=== PATIENT | female | born 1985 | race Caucasian/White ===

== ENCOUNTER 2019-12-27 11:25 | Emergency (ER) | payer BC ==
[2019-12-27] MEDS ORDERED: ACETAMINOPHEN TAB 500 MG TAB PO STA (12:08)
--- NOTE | 2019-12-27 12:17 | ED ---
Fever HPI - General Chief Complaint: Fever Stated Complaint: fever/chills Time Seen by Provider: 12/27/19 11:42 Source: patient, RN notes reviewed Mode of arrival: ambulatory Limitations: no limitations - History of Present Illness Initial Comments: This is a 34-year-old female presents emergency Department with chief complaint of fever, chills, shortness of breath. Patient states that symptoms at certain last 24 hours and have progressively worsened. She states that her daughter is sick with presumptive pneumonia diagnosed by PCP on video call. Patient states that she does have history of asthma has been using her inhaler. She states she had shaking chills last night that she could not control she states that she's been taken Tylenol but has not had any recent doses last 4 hours. Patient denies any specific chest pain but states that she has diffuse achiness, body aches. Patient denies any GI symptoms include nausea, vomiting, diarrhea constipation. - Related Data Home Medications Medication Instructions Recorded Confirmed Albuterol Inhaler (Bulk) [Ventolin 1 - 2 puff INHALATION Q6HR PRN 12/06/15 03/04/16 Hfa Inhaler] Acetaminophen Tab [Tylenol Tab] 650 mg PO Q4H PRN 08/26/16 09/03/16 valACYclovir HCL [Valtrex] 1 gram PO DAILY 12/27/19 12/27/19 Previous Rx's Medication Instructions Recorded Azithromycin [Zithromax Z-pack] 0 mg PO DIRECTED #1 pack 12/27/19 Allergies Allergy/AdvReac Type Severity Reaction Status Date / Time cephalexin [From Keflex] Allergy Rash/Hives Verified 12/27/19 13:57 cephalexin monohydrate Allergy Unknown Verified 12/27/19 13:57 [From Keflex] Review of Systems ROS Statement: Those systems with pertinent positive or pertinent negative responses have been documented in the HPI. ROS Other: All systems not noted in ROS Statement are negative. Past Medical History Past Medical History: Asthma Additional Past Medical History / Comment(s): Insulin-dependent gestational diabetes History of Any Multi-Drug Resistant Organisms: None Reported Past Surgical History: Appendectomy Additional Past Surgical History / Comment(s): x3 childbirth Past Anesthesia/Blood Transfusion Reactions: No Reported Reaction Past Psychological History: No Psychological Hx Reported Smoking Status: Never smoker Past Alcohol Use History: Occasional Past Drug Use History: None Reported - Past Family History Mother Family Medical History: Asthma General Exam Limitations: no limitations General appearance: alert, in no apparent distress Head exam: Present: atraumatic, normocephalic, normal inspection Eye exam: Present: normal appearance, PERRL, EOMI. Absent: scleral icterus, conjunctival injection, periorbital swelling ENT exam: Present: normal exam, normal oropharynx, mucous membranes moist Neck exam: Present: normal inspection, full ROM. Absent: tenderness, meningismus, lymphadenopathy Respiratory exam: Present: normal lung sounds bilaterally. Absent: respiratory distress, wheezes, rales, rhonchi, stridor Cardiovascular Exam: Present: normal rhythm, tachycardia, normal heart sounds. Absent: systolic murmur, diastolic murmur, rubs, gallop, clicks GI/Abdominal exam: Present: soft, normal bowel sounds. Absent: distended, tenderness, guarding, rebound, rigid Back exam: Absent: CVA tenderness (R), CVA tenderness (L) Neurological exam: Present: alert, oriented X3, CN II-XII intact Skin exam: Present: warm, dry, intact, normal color. Absent: rash Course Vital Signs 12/27/19 12/27/19 12/27/19 11:39 11:58 13:33 Temperature 101.5 F H 100.8 F H Pulse Rate 123 H 93 Respiratory 20 20 18 Rate Blood Pressure 113/75 90/70 O2 Sat by Pulse 96 99 Oximetry Medical Decision Making - Medical Decision Making 34-year-old female presents emergency department for fever cough congestion. Patient has evidence of left lower basilar pneumonia. Patient will be given azithromycin and Rocephin given as she has ALLERGY to Keflex. Patient states she does feel improved. Patient has elected chest pain had this time. Patient's labs reveal mild elevated CRP LDH is low, d-dimer 0.8. I do not feel that patient has a PE discuss possible CT patient has no concerns at this time, no risk factors. This was ordered for diagnostic for concerns of COVID. COVID test is negative. Discussed the case with attending Dr. gambino agrees to plan. Patient instructed to self quarantine as her still slight she may have Covid. Patient agrees this. Patient was given very strict return parameters. - Lab Data Result diagrams: 12/27/19 12:30 12/27/19 12:30 Lab Results 12/27/19 12/27/19 12/27/19 Range/Units 12:30 12:30 12:30 WBC 6.8 (3.8-10.6) k/uL RBC 4.20 (3.80-5.40) m/uL Hgb 13.1 (11.4-16.0) gm/dL Hct 39.8 (34.0-46.0) % MCV 94.8 (80.0-100.0) fL MCH 31.2 (25.0-35.0) pg MCHC 33.0 (31.0-37.0) g/dL RDW 12.0 (11.5-15.5) % Plt Count 227 (150-450) k/uL Neutrophils % 83 % Lymphocytes % 8 % Monocytes % 7 % Eosinophils % 1 % Basophils % 0 % Neutrophils # 5.6 (1.3-7.7) k/uL Lymphocytes # 0.5 L (1.0-4.8) k/uL Monocytes # 0.5 (0-1.0) k/uL Eosinophils # 0.1 (0-0.7) k/uL Basophils # 0.0 (0-0.2) k/uL PT 10.2 (9.0-12.0) sec INR 1.0 (<1.2) APTT 22.8 (22.0-30.0) sec D-Dimer 0.80 H (<0.60) mg/L FEU Sodium 135 L (137-145) mmol/L Potassium 3.8 (3.5-5.1) mmol/L Chloride 99 (98-107) mmol/L Carbon Dioxide 27 (22-30) mmol/L Anion Gap 9 mmol/L BUN 8 (7-17) mg/dL Creatinine 0.60 (0.52-1.04) mg/dL Est GFR (CKD-EPI)AfAm >90 (>60 ml/min/1.73 sqM) Est GFR (CKD-EPI)NonAf >90 (>60 ml/min/1.73 sqM) Glucose 121 H (74-99) mg/dL Plasma Lactic Acid Dylon (0.7-2.0) mmol/L Calcium 8.8 (8.4-10.2) mg/dL Magnesium 1.7 (1.6-2.3) mg/dL Total Bilirubin 0.6 (0.2-1.3) mg/dL AST 21 (14-36) U/L ALT 25 (4-34) U/L Alkaline Phosphatase 60 (38-126) U/L Lactate Dehydrogenase 292 L (313-618) U/L C-Reactive Protein 62.1 H (<10.0) mg/L Total Protein 7.1 (6.3-8.2) g/dL Albumin 4.2 (3.5-5.0) g/dL Coronavirus (PCR) (Not Detectd) 12/27/19 12/27/19 Range/Units 12:30 12:53 WBC (3.8-10.6) k/uL RBC (3.80-5.40) m/uL Hgb (11.4-16.0) gm/dL Hct (34.0-46.0) % MCV (80.0-100.0) fL MCH (25.0-35.0) pg MCHC (31.0-37.0) g/dL RDW (11.5-15.5) % Plt Count (150-450) k/uL Neutrophils % % Lymphocytes % % Monocytes % % Eosinophils % % Basophils % % Neutrophils # (1.3-7.7) k/uL Lymphocytes # (1.0-4.8) k/uL Monocytes # (0-1.0) k/uL Eosinophils # (0-0.7) k/uL Basophils # (0-0.2) k/uL PT (9.0-12.0) sec INR (<1.2) APTT (22.0-30.0) sec D-Dimer (<0.60) mg/L FEU Sodium (137-145) mmol/L Potassium (3.5-5.1) mmol/L Chloride (98-107) mmol/L Carbon Dioxide (22-30) mmol/L Anion Gap mmol/L BUN (7-17) mg/dL Creatinine (0.52-1.04) mg/dL Est GFR (CKD-EPI)AfAm (>60 ml/min/1.73 sqM) Est GFR (CKD-EPI)NonAf (>60 ml/min/1.73 sqM) Glucose (74-99) mg/dL Plasma Lactic Acid Dylon 1.3 (0.7-2.0) mmol/L Calcium (8.4-10.2) mg/dL Magnesium (1.6-2.3) mg/dL Total Bilirubin (0.2-1.3) mg/dL AST (14-36) U/L ALT (4-34) U/L Alkaline Phosphatase (38-126) U/L Lactate Dehydrogenase (313-618) U/L C-Reactive Protein (<10.0) mg/L Total Protein (6.3-8.2) g/dL Albumin (3.5-5.0) g/dL Coronavirus (PCR) Not Detected (Not Detectd) Disposition Clinical Impression: Pneumonia Disposition: HOME SELF-CARE Condition: Stable Instructions (If sedation given, give patient instructions): Pneumonia (ED) Additional Instructions: Please return to the Emergency Department if symptoms worsen or any other concerns. Prescriptions: Azithromycin [Zithromax Z-pack] 0 mg PO DIRECTED #1 pack Is patient prescribed a controlled substance at d/c from ED?: No Referrals: None,Stated [Primary Care Provider] - 1-2 days Time of Disposition: 14:01
[2019-12-27 13:01] LABS: Partial Thromboplastin Time 22.8 sec (22.0-30.0); Prothrombin Time 10.2 sec (9.0-12.0)
[2019-12-27 13:02] LABS: ALT 25 U/L (4-34); AST 21 U/L (14-36); African American GFR (CKD) >90 (>60 ml/min/1.73 sqM); Albumin 4.2 g/dL (3.5-5.0); Alkaline Phosphatase 60 U/L (38-126); Anion Gap 9 mmol/L; Blood Urea Nitrogen 8 mg/dL (7-17); C Reactive Protein 62.1 mg/L (<10.0); Calcium 8.8 mg/dL (8.4-10.2); Carbon Dioxide 27 mmol/L (22-30); Chloride 99 mmol/L (98-107); Glucose 121 mg/dL (74-99); LDH 292 U/L (313-618); Magnesium 1.7 mg/dL (1.6-2.3); Non-African American GFR(CKD) >90 (>60 ml/min/1.73 sqM); Potassium 3.8 mmol/L (3.5-5.1); Sodium 135 mmol/L (137-145); Total Bilirubin 0.6 mg/dL (0.2-1.3); Total Protein 7.1 g/dL (6.3-8.2)
[2019-12-27 13:08] LABS: Basophils % (A) 0 %; Eosinophils # (A) 0.1 k/uL (0-0.7); Eosinophils % (A) 1 %; HCT 39.8 % (34.0-46.0); HGB 13.1 gm/dL (11.4-16.0); Lymphocytes # (A) 0.5 k/uL (1.0-4.8); Lymphocytes % (A) 8 %; MCH 31.2 pg (25.0-35.0); MCV 94.8 fL (80.0-100.0); Mean Platelet Volume 6.9; Monocytes # (A) 0.5 k/uL (0-1.0); Monocytes % (A) 7 %; Neutrophils # (A) 5.6 k/uL (1.3-7.7); Neutrophils % (A) 83 %; Platelet Count 227 k/uL (150-450); WBC 6.8 k/uL (3.8-10.6)
--- NOTE | 2019-12-27 13:12 | XR ---
EXAMINATION TYPE: XR chest 1V portable DATE OF EXAM: 12/27/2019 Comparison: 12/12/2012 Clinical History: 34-year-old female with cough and congestion, fever, Suspected COVID-19 pneumonia. Findings: The heart is normal size. Aorta and pulmonary vasculature within normal limits. Left basilar opacity obscuring the hemidiaphragm. Impression: Left basilar pneumonia suggested.
[2019-12-27 13:27] LABS: D-Dimer 0.8 mg/L FEU (<0.60)
[2019-12-27 13:34] VITALS: RESP 18
[2019-12-27] MEDS ORDERED: SODIUM CHLORIDE 0.9% 1,000 ML IV ONE (13:56)
[2019-12-27] MEDS ORDERED: AZITHROMYCIN 250 MG TAB PO STA (13:57)
[2019-12-27 15:18] VITALS: BP 109/75; PULSE 92; TEMP 99
[2019-12-27 18:33] LABS: Ferritin 118.8 ng/mL (10.0-291.0)
== END 2019-12-27 15:16 | disposition home or self-care (01) ==
LOC: EC 11:25
DX: J18.9 Pneumonia, unspecified organism (principal); J45.909 Unspecified asthma, uncomplicated; Z88.1 Allergy status to other antibiotic agents
CPT/HCPCS: 36415; 71045; 80053; 82728; 83605; 83615; 83735; 84145; 85025; 85379; 85610; 85730; 86140; 87040; 87635; 93005; 96360; 99284

== ENCOUNTER 2020-12-14 10:05 | Emergency (ER) | payer BC ==
[2020-12-14] MEDS ORDERED: KETOROLAC 15 MG/ML 1 ML VIAL IVP STA (11:34)
--- NOTE | 2020-12-14 11:36 | XR ---
EXAMINATION TYPE: XR chest 1V portable DATE OF EXAM: 12/14/2020 COMPARISON: 12/27/2019 INDICATION: Cough congestion TECHNIQUE: Single frontal view of the chest is obtained. FINDINGS: The heart size is normal. The pulmonary vasculature is normal. Minimal subsegmental infiltrates may be present within the periphery of the lungs. Findings are very mild. IMPRESSION: 1. Mild scattered subsegmental infiltrates are nonspecific can be compatible with atypical pneumonia.
[2020-12-14] MEDS ORDERED: LORazepam 2 MG/ML INJ IV STA (11:43)
[2020-12-14] MEDS ORDERED: ALBUTEROL NEBULIZED 2.5 MG/3 ML INHALATION STA (11:43)
[2020-12-14] MEDS ORDERED: ALBUTEROL HFA INHALER INHALATION STA (12:42)
[2020-12-14 13:00] LABS: Basophils % (A) 1 %; Eosinophils # (A) 0.1 k/uL (0-0.7); Eosinophils % (A) 1 %; HCT 39.9 % (34.0-46.0); Lymphocytes # (A) 0.8 k/uL (1.0-4.8); Lymphocytes % (A) 10 %; MCH 31.5 pg (25.0-35.0); MCHC 35.2 g/dL (31.0-37.0); MCV 89.5 fL (80.0-100.0); Mean Platelet Volume 7.3; Monocytes # (A) 0.4 k/uL (0-1.0); Monocytes % (A) 5 %; Neutrophils # (A) 6.5 k/uL (1.3-7.7); Neutrophils % (A) 82 %; Platelet Count 286 k/uL (150-450); RBC 4.46 m/uL (3.80-5.40); RDW 11.9 % (11.5-15.5); WBC 7.9 k/uL (3.8-10.6)
[2020-12-14 13:11] LABS: ALT 45 U/L (4-34); African American GFR (CKD) >90 (>60 ml/min/1.73 sqM); Albumin 4.3 g/dL (3.5-5.0); Anion Gap 10 mmol/L; Blood Urea Nitrogen 15 mg/dL (7-17); C Reactive Protein 48.7 mg/L (<10.0); Carbon Dioxide 25 mmol/L (22-30); Chloride 101 mmol/L (98-107); Glucose 108 mg/dL (74-99); LDH 905 U/L (313-618); Non-African American GFR(CKD) >90 (>60 ml/min/1.73 sqM); Sodium 136 mmol/L (137-145); Total Bilirubin 0.8 mg/dL (0.2-1.3); Total Protein 7.5 g/dL (6.3-8.2)
[2020-12-14 13:14] LABS: AST 34 U/L (14-36); Magnesium 1.8 mg/dL (1.6-2.3); Potassium 3.9 mmol/L (3.5-5.1)
[2020-12-14 13:15] LABS: Alkaline Phosphatase 49 U/L (38-126); INR 0.9 (<1.2); Partial Thromboplastin Time 23.1 sec (22.0-30.0); Prothrombin Time 9.7 sec (9.0-12.0)
[2020-12-14 13:45] LABS: D-Dimer 1.15 mg/L FEU (<0.60)
--- NOTE | 2020-12-14 15:02 | CT ---
EXAMINATION TYPE: CT chest angio for PE DATE OF EXAM: 12/14/2020 COMPARISON: Same-day radiograph. HISTORY: positive d-dimer CT DLP: 394.7 mGycm Automated exposure control for dose reduction was used. CONTRAST: CT Chest for pulmonary embolism performed with with IV Contrast, patient injected with 100 mL of Isov ue 370. FINDINGS: LUNGS: There are bilateral diffuse moderate patchy groundglass opacities. There is no pleural effus ion or pneumothorax seen. The tracheobronchial tree is patent. MEDIASTINUM: There is satisfactory enhancement of the pulmonary artery and its branches, there is no CT evidence for pulmonary embolism. There are scattered multiple borderline to mildly enlarged media stinal and hilar lymph nodes, likely reactive. No pericardial effusion is seen. OTHER: Moderate hiatal hernia is seen. No additional significant abnormality is seen. IMPRESSION: Bilateral diffuse patchy opacities, compatible with atypical pneumonia to include Covid pneumonia. No acute PE. Hiatal hernia.
[2020-12-14] MEDS ORDERED: DEXAMETHASONE SOD PHOSPHATE 4 MG/ML 1 ML VIAL IV STA (15:26)
--- NOTE | 2020-12-14 15:31 | ED ---
General Adult HPI - General Source: patient, RN notes reviewed Limitations: no limitations <Moody Jolly - Last Filed: 12/14/20 20:06> <Vane Crawford - Last Filed: 12/15/20 07:53> - General Chief complaint: Shortness of Breath Stated complaint: Covid+, SOB Time Seen by Provider: 12/14/20 11:07 - History of Present Illness Initial comments: 34-year-old female with a past medical history of asthma presents to the emergency room for a chief complaint of shortness of breath. Patient reports that she tested positive for Covid 11 days ago. She states that she has had symptoms for 12 days now. States she is short of breath. States that she ran out of her DuoNeb medication. States this shortness of breath does not seem to be improving. She at times has chest pain with coughing. She states she feels like she cannot get a deep breath.Patient has no other complaints at this time including nausea or vomiting, headache, or visual changes. (Moody Jolly) - Related Data Home Medications Medication Instructions Recorded Confirmed Albuterol Sulfate [Albuterol 2 puff INHALATION RT-QID PRN 12/14/20 12/14/20 Sulfate Hfa] Ibuprofen [Motrin] 600 mg PO Q8HR PRN 12/14/20 12/14/20 Previous Rx's Medication Instructions Recorded Benzonatate [Tessalon Perles] 200 mg PO Q8H PRN #30 capsule 12/14/20 Dexamethasone [Decadron] 6 mg PO DAILY #6 tablet 12/14/20 Ipratropium-Albuterol Nebulize 3 ml INHALATION QID #20 neb 12/14/20 [Duoneb 0.5 mg-3 mg/3 ml Soln] Allergies Allergy/AdvReac Type Severity Reaction Status Date / Time cephalexin [From Keflex] Allergy Rash/Hives Verified 12/14/20 13:25 cephalexin monohydrate Allergy Rash/Hives Verified 12/14/20 13:25 [From Keflex] Review of Systems ROS Other: All systems not noted in ROS Statement are negative. <Moody Jolly - Last Filed: 12/14/20 20:06> ROS Other: All systems not noted in ROS Statement are negative. <Damer,Vane A - Last Filed: 12/15/20 07:53> ROS Statement: Those systems with pertinent positive or pertinent negative responses have been documented in the HPI. Past Medical History Past Medical History: Asthma, Pneumonia Additional Past Medical History / Comment(s): Insulin-dependent gestational diabetes History of Any Multi-Drug Resistant Organisms: None Reported Past Surgical History: Appendectomy Additional Past Surgical History / Comment(s): x3 childbirth Past Anesthesia/Blood Transfusion Reactions: No Reported Reaction Past Psychological History: No Psychological Hx Reported Smoking Status: Never smoker Past Alcohol Use History: Occasional Past Drug Use History: None Reported - Past Family History Mother Family Medical History: Asthma <Moody Jolly - Last Filed: 12/14/20 20:06> General Exam Limitations: no limitations General appearance: alert, in no apparent distress Head exam: Present: atraumatic, normocephalic, normal inspection Eye exam: Present: normal appearance, PERRL, EOMI. Absent: scleral icterus, conjunctival injection, periorbital swelling ENT exam: Present: normal exam, mucous membranes moist Neck exam: Present: normal inspection. Absent: tenderness, meningismus, lymphadenopathy Respiratory exam: Present: normal lung sounds bilaterally. Absent: respiratory distress, wheezes, rales, rhonchi, stridor Cardiovascular Exam: Present: regular rate, normal rhythm, normal heart sounds. Absent: systolic murmur, diastolic murmur, rubs, gallop, clicks GI/Abdominal exam: Present: soft, normal bowel sounds. Absent: distended, tenderness, guarding, rebound, rigid <Moody Jolly - Last Filed: 12/14/20 20:06> Course Vital Signs 12/14/20 12/14/20 12/14/20 10:20 15:03 16:27 Temperature 98.4 F 98.1 F 98.0 F Pulse Rate 97 84 81 Respiratory 20 18 16 Rate Blood Pressure 95/63 101/71 108/78 O2 Sat by Pulse 96 95 98 Oximetry EKG Findings - EKG Comments: EKG Findings:: Normal sinus rhythm, ventricular rate 88, RI interval 140, QTC 450 <Moody Jolly - Last Filed: 12/14/20 20:06> Medical Decision Making - Lab Data Result diagrams: 12/14/20 12:28 04/11/21 12:28 <Moody Jolly - Last Filed: 12/14/20 20:06> - Lab Data Result diagrams: 12/14/20 12:28 12/14/20 12:28 <Vane Crawford - Last Filed: 12/15/20 07:53> - Medical Decision Making Vitals are stable. Patient initially 96% on room air. He do not ischemic. CBC unremarkable. CMP unremarkable. There are elevated inflammation markers likely secondary to COVID. Coronavirus is positive. CT shows diffuse bilateral patchy opacities with atypical pneumonia. Consistent with covid. No PE. Repeat vitals showed 95% on room air. The patient is well appearing on reevaluation. She does feel better. I will refill patient's DuoNeb prescription. We will start patient on Decadron given asthma history. Patient does not qualify for antibody infusion given she has had 12 days of symptoms. At this time she follow up with primary care and strict return parameters discussed. She will try to get pulse oximeter. I discussed this case with attending Dr. Crawford who agrees with this assessment and treatment plan. (Moody Jolly) I was available for consultation in the emergency department. The history and physical exam were done by the midlevel provider. I was consulted for this patients care. I reviewed the case with the midlevel provider and based on their presentation of the patient, I agree with the assessment, medical decision making and plan of care as documented. Chart was dictated using [employer] dictation software. Attempts were made to correct any dictation errors however some typographical errors may persist. (Vane Crawford) - Lab Data Lab Results 12/14/20 12/14/20 12/14/20 Range/Units 12:28 12:28 12:28 WBC 7.9 (3.8-10.6) k/uL RBC 4.46 (3.80-5.40) m/uL Hgb 14.0 (11.4-16.0) gm/dL Hct 39.9 (34.0-46.0) % MCV 89.5 (80.0-100.0) fL MCH 31.5 (25.0-35.0) pg MCHC 35.2 (31.0-37.0) g/dL RDW 11.9 (11.5-15.5) % Plt Count 286 (150-450) k/uL MPV 7.3 Neutrophils % 82 % Lymphocytes % 10 % Monocytes % 5 % Eosinophils % 1 % Basophils % 1 % Neutrophils # 6.5 (1.3-7.7) k/uL Lymphocytes # 0.8 L (1.0-4.8) k/uL Monocytes # 0.4 (0-1.0) k/uL Eosinophils # 0.1 (0-0.7) k/uL Basophils # 0.0 (0-0.2) k/uL PT 9.7 (9.0-12.0) sec INR 0.9 (<1.2) APTT 23.1 (22.0-30.0) sec D-Dimer 1.15 H (<0.60) mg/L FEU Sodium 136 L (137-145) mmol/L Potassium 3.9 (3.5-5.1) mmol/L Chloride 101 (98-107) mmol/L Carbon Dioxide 25 (22-30) mmol/L Anion Gap 10 mmol/L BUN 15 (7-17) mg/dL Creatinine 0.57 (0.52-1.04) mg/dL Est GFR (CKD-EPI)AfAm >90 (>60 ml/min/1.73 sqM) Est GFR (CKD-EPI)NonAf >90 (>60 ml/min/1.73 sqM) Glucose 108 H (74-99) mg/dL Plasma Lactic Acid Dylon (0.7-2.0) mmol/L Calcium 9.0 (8.4-10.2) mg/dL Magnesium 1.8 (1.6-2.3) mg/dL Ferritin 88.0 (10.0-291.0) ng/mL Total Bilirubin 0.8 (0.2-1.3) mg/dL AST 34 (14-36) U/L ALT 45 H (4-34) U/L Alkaline Phosphatase 49 (38-126) U/L Lactate Dehydrogenase 905 H (313-618) U/L C-Reactive Protein 48.7 H (<10.0) mg/L Total Protein 7.5 (6.3-8.2) g/dL Albumin 4.3 (3.5-5.0) g/dL Procalcitonin (0.02-0.09) ng/mL Coronavirus (PCR) (Not Detectd) 12/14/20 12/14/20 12/14/20 Range/Units 12:28 12:28 12:46 WBC (3.8-10.6) k/uL RBC (3.80-5.40) m/uL Hgb (11.4-16.0) gm/dL Hct (34.0-46.0) % MCV (80.0-100.0) fL MCH (25.0-35.0) pg MCHC (31.0-37.0) g/dL RDW (11.5-15.5) % Plt Count (150-450) k/uL MPV Neutrophils % % Lymphocytes % % Monocytes % % Eosinophils % % Basophils % % Neutrophils # (1.3-7.7) k/uL Lymphocytes # (1.0-4.8) k/uL Monocytes # (0-1.0) k/uL Eosinophils # (0-0.7) k/uL Basophils # (0-0.2) k/uL PT (9.0-12.0) sec INR (<1.2) APTT (22.0-30.0) sec D-Dimer (<0.60) mg/L FEU Sodium (137-145) mmol/L Potassium (3.5-5.1) mmol/L Chloride (98-107) mmol/L Carbon Dioxide (22-30) mmol/L Anion Gap mmol/L BUN (7-17) mg/dL Creatinine (0.52-1.04) mg/dL Est GFR (CKD-EPI)AfAm (>60 ml/min/1.73 sqM) Est GFR (CKD-EPI)NonAf (>60 ml/min/1.73 sqM) Glucose (74-99) mg/dL Plasma Lactic Acid Dylon 0.9 (0.7-2.0) mmol/L Calcium (8.4-10.2) mg/dL Magnesium (1.6-2.3) mg/dL Ferritin (10.0-291.0) ng/mL Total Bilirubin (0.2-1.3) mg/dL AST (14-36) U/L ALT (4-34) U/L Alkaline Phosphatase (38-126) U/L Lactate Dehydrogenase (313-618) U/L C-Reactive Protein (<10.0) mg/L Total Protein (6.3-8.2) g/dL Albumin (3.5-5.0) g/dL Procalcitonin 0.06 (0.02-0.09) ng/mL Coronavirus (PCR) Detected A (Not Detectd) Disposition Is patient prescribed a controlled substance at d/c from ED?: No Time of Disposition: 15:25 <Moody Jolly - Last Filed: 12/14/20 20:06> <Vane Crawford - Last Filed: 12/15/20 07:53> Clinical Impression: COVID-19, Pneumonia due to COVID-19 virus Disposition: HOME SELF-CARE Condition: Good Instructions (If sedation given, give patient instructions): Coronavirus Disease 2019 (COVID-19) Additional Instructions: Please take steroid as directed starting tomorrow. Otherwise start medications prescribed today. Continue to take Motrin and Tylenol as needed. Follow-up with your doctor. If you have worsening symptoms return to the emergency room. Prescriptions: Dexamethasone [Decadron] 6 mg PO DAILY #6 tablet Ipratropium-Albuterol Nebulize [Duoneb 0.5 mg-3 mg/3 ml Soln] 3 ml INHALATION QID #20 neb Benzonatate [Tessalon Perles] 200 mg PO Q8H PRN #30 capsule PRN Reason: Cough Referrals: Reema Echols MD [Primary Care Provider] - 1-2 days
[2020-12-14] MEDS ORDERED: ACET/COD 300 MG/30 MG STARTER PACK 6 TAB BTL PO STA (16:10)
[2020-12-14 16:28] VITALS: BP 108/78; PULSE 81; RESP 16; TEMP 98
== END 2020-12-14 16:27 | disposition home or self-care (01) ==
LOC: EC 10:05
DX: U07.1 COVID-19 (principal); J12.82 Pneumonia due to coronavirus disease 2019; J45.909 Unspecified asthma, uncomplicated
CPT/HCPCS: 36415; 94640; 93005; 85379; 80053; 82728; 83605; 83615; 83735; 85025; 85610; 85730; 86140; 84145; 87635; 71045; 71275; 99285; 96374; 96375; J2060; J1100; J1885; Q9967